=== PATIENT | female | born 1980 | race Caucasian/White ===

== ENCOUNTER → 2018-09-26 | Outpatient (CLI) | payer MEDICAID | LOC: CIMAGING 12:04 | PROVIDERS: ATTEND Family Medicine | DX: R05 Cough (principal); Z87.891 Personal history of nicotine dependence | CPT/HCPCS: 71046-PO ==

== ENCOUNTER → 2018-12-02 | Outpatient (CLI) | payer MEDICAID | LOC: FIMAGING 10:23 | PROVIDERS: ATTEND Family Medicine | DX: M51.36 Other intervertebral disc degeneration, lumbar region (principal); M51.86 Other intervertebral disc disorders, lumbar region; M48.54XD Collapsed vertebra, not elsewhere classified, thoracic region, subsequent encounter for fracture with routine healing ==

== ENCOUNTER → 2018-12-16 | Outpatient (CLI) | payer MEDICAID | LOC: CIMAGING 09:28 | PROVIDERS: ATTEND Family Medicine | DX: S30.0XXA Contusion of lower back and pelvis, initial encounter (principal); W10.9XXA Fall (on) (from) unspecified stairs and steps, initial encounter; Y93.9 Activity, unspecified; Y92.9 Unspecified place or not applicable | CPT/HCPCS: 72220-PO ==